=== PATIENT | female | born 1940 | race Caucasian/White ===

== ENCOUNTER 2017-04-03 06:00 | Day surgery (SDC) | payer MEDICARE, BC ==
[~2017-04-03] VITALS: Ht 154.9 cm; Wt 61.2 kg
[~2017-04-03 06:00] MED LIST: AMITIZA8 MCG PO; ASA LO-DOSE81 MG OR; CALCIUM; CENTRUM SILVER PO; CO Q-10200 M1 PO; COZAAR50 MG OR; FOSAMAX70 MG OR; HYDROCHLOROT25 MG OR; LIPITOR20 M1 PO; NAPROSYN500 MG OR; NEURONTIN300 MG PO; NEXIUM 24HR20 MG; PAROXETINE20 MG OR; PAXIL40 MG PO; PRILOSEC20 MG PO; SINGULAIR PO; TRAMADL/APAP PO; TRAZODONE100 MG OR; ZOCOR80 MG OR; [UNRECOGNIZED DRUG - OTHER]
[2017-04-03 07:30] VITALS: BP 132/62
== END 2017-04-03 08:22 | disposition home or self-care (01) ==
LOC: ORM 06:00
PROVIDERS: ATTEND Anesthesiology Pain Medicine
PROC: 3E0T33Z Introduction of Anti-inflammatory into Peripheral Nerves and Plexi, Percutaneous Approach (ICD-10-PCS; principal; 2017-04-03)
PROC: 3E0T3BZ Introduction of Anesthetic Agent into Peripheral Nerves and Plexi, Percutaneous Approach (ICD-10-PCS; 2017-04-03)
DX: M54.5 Low back pain (principal)

== ENCOUNTER 2017-04-24 06:48 | Day surgery (SDC) | payer MEDICARE, BC ==
[~2017-04-24] VITALS: Ht 154.9 cm; Wt 59.9 kg
[2017-04-24 13:32] VITALS: BP 128/59
== END 2017-04-24 09:30 | disposition home or self-care (01) ==
LOC: ORM 06:48
PROVIDERS: ATTEND Anesthesiology Pain Medicine
PROC: 3E0R33Z Introduction of Anti-inflammatory into Spinal Canal, Percutaneous Approach (ICD-10-PCS; principal; 2017-04-24)
DX: M54.16 Radiculopathy, lumbar region (principal); M54.5 Low back pain; M48.07 Spinal stenosis, lumbosacral region

== ENCOUNTER 2017-10-26 14:38 | Emergency (ER) | payer MEDICARE, BC ==
[~2017-10-26] VITALS: Ht 154.9 cm; Wt 60.4 kg
[~2017-10-26 14:38] MED LIST changes: +TRAMADOL HCL50 MG PO
[2017-10-26 15:37] LABS: HEMATOCRIT 41.1 % (37.0-47.0); HEMOGLOBIN 14.1 g/dl (12.0-16.0); IMMATURE GRANULOCYTES 0.2 % (0.0-1.0); MEAN CELL VOLUME 89.3 fL CALC (80.0-100.0); MEAN CORPUSCULAR HGB 30.7 pG CALC (26.0-32.0); MEAN CORPUSCULAR HGB CONC 34.3 g/L CALC (32.0-36.0); NEUT# 5.52 thou/uL (2.00-7.15); RED BLOOD COUNT 4.6 mill/uL (4.20-5.60); RED CELL DISTRI WIDTH 12.7 % (11.5-15.5)
[2017-10-26 15:43] LABS: URINE BILIRUBIN - DIPSTICK NEGATIVE (NEGATIVE); URINE BLOOD DIPSTICK TRACE-INTACT (NEGATIVE); URINE COLOR YELLOW; URINE GLUCOSE - DIPSTICK NEGATIVE (NEGATIVE); URINE KETONE NEGATIVE (NEGATIVE); URINE LEUK ESTERASE NEGATIVE (NEGATIVE); URINE NITRITE - DIPSTICK NEGATIVE (Negative); URINE PROTEIN - DIPSTICK NEGATIVE (NEG-TRACE); URINE SPECIFIC GRAVITY <=1.005; URINE UROBILINOGEN - DIPSTICK 0.2 E.U./dL (0.2)
[2017-10-26 15:46] LABS: URINE CLARITY CLEAR
[2017-10-26 15:54] LABS: INFLUENZA A NONE DETECTED (NONE DETECT); INFLUENZA B NONE DETECTED (NONE DETECT)
[2017-10-26 16:06] LABS: ANION GAP 17 (6-22 (CALC)); BUN 17 mg/dL (8-23); BUN/CREATININE RATIO 18 (12-20 (CALC)); CARBON DIOXIDE 25 mmol/l (22-30); CHLORIDE 104 mmol/l (95-108); CREATININE 0.9 mg/dL (0.5-1.0); GFR > 60 ML/MIN (>=60 (CALC)); GFR FOR AFR.AMER. > 60 ML/MIN (>=60 (CALC)); POTASSIUM 4.6 mmol/l (3.5-5.1); SODIUM 142 mmol/l (137-146)
[2017-10-26] MEDS ORDERED: AMLODIPINE5 MG PO (16:46)
[2017-10-26 16:53] VITALS: BP 187/85
[2017-10-26] MEDS ORDERED: TRAZODONE100 MG PO (16:56)
== END 2017-10-26 17:00 | disposition home or self-care (01) ==
LOC: ED 14:38
PROVIDERS: Family Medicine
DX: I10 Essential (primary) hypertension (principal); R51 Headache; M79.7 Fibromyalgia; E78.00 Pure hypercholesterolemia, unspecified

== ENCOUNTER 2018-10-19 18:35 | Emergency (ER) | payer MEDICARE ==
[~2018-10-19] VITALS: Ht 154.9 cm; Wt 58.6 kg
[~2018-10-19 18:35] MED LIST changes: +AMLODIPINE5 MG PO; +TRAZODONE100 MG PO
[2018-10-19 19:38] LABS: HEMOGLOBIN 12.8 g/dl (12.0-16.0); IMMATURE GRANULOCYTES 0.2 % (0.0-5.0); MEAN CELL VOLUME 90.9 fL CALC (80.0-100.0); MEAN CORPUSCULAR HGB 31.4 pG CALC (26.0-32.0); MEAN CORPUSCULAR HGB CONC 34.6 g/L CALC (32.0-36.0); RED BLOOD COUNT 4.07 mill/uL (4.20-5.60); RED CELL DISTRI WIDTH 12.5 % (11.5-15.5)
[2018-10-19 19:55] LABS: ALBUMIN 4.3 g/dL (3.2-5.0); ALKALINE PHOSPHATASE 72 u/l (38-126); AMYLASE 52 u/l (30-110); ANION GAP 14 (6-22 (CALC)); BILIRUBIN, TOTAL 0.3 mg/dL (0.0-1.4); BUN 18 mg/dL (8-23); BUN/CREATININE RATIO 20 (12-20 (CALC)); CARBON DIOXIDE 28 mmol/l (22-30); CHLORIDE 100 mmol/l (95-108); CREATININE 0.9 mg/dL (0.5-1.0); GFR > 60 ML/MIN (>=60 (CALC)); GFR FOR AFR.AMER. > 60 ML/MIN (>=60 (CALC)); LIPASE 156 u/l (23-300); POTASSIUM 4.1 mmol/l (3.5-5.1); SGOT/AST 28 u/l (9-36); SODIUM 137 mmol/l (137-146); TOTAL PROTEIN 6.5 g/dL (6.3-8.2)
[2018-10-19 20:06] LABS: MYOGLOBIN 36 ng/mL (0 - 62)
[2018-10-19 21:14] LABS: URINE BILIRUBIN - DIPSTICK NEGATIVE (NEGATIVE); URINE BLOOD DIPSTICK NEGATIVE (NEGATIVE); URINE COLOR YELLOW; URINE GLUCOSE - DIPSTICK NEGATIVE (NEGATIVE); URINE KETONE NEGATIVE (NEGATIVE); URINE LEUK ESTERASE NEGATIVE (NEGATIVE); URINE NITRITE - DIPSTICK NEGATIVE (Negative); URINE PH 5.5 (4.5-8.0); URINE PROTEIN - DIPSTICK NEGATIVE (NEG-TRACE); URINE SPECIFIC GRAVITY <=1.005; URINE UROBILINOGEN - DIPSTICK 0.2 E.U./dL (0.2)
[2018-10-19] MEDS ORDERED: ZESTRIL10 M1 PO (21:23)
[2018-10-19] MEDS ORDERED: PEPCID40 MG PO (21:23)
[2018-10-19 21:48] VITALS: BP 160/72
== END 2018-10-19 21:48 | disposition home or self-care (01) ==
LOC: ED 18:35
PROVIDERS: Family Medicine
DX: K29.70 Gastritis, unspecified, without bleeding (principal); K59.00 Constipation, unspecified; I10 Essential (primary) hypertension; R11.0 Nausea; R14.2 Eructation; R10.13 Epigastric pain; M79.7 Fibromyalgia; R13.10 Dysphagia, unspecified

== ENCOUNTER 2019-04-01 06:52 | Day surgery (SDC) | payer MEDICARE ==
[~2019-04-01] VITALS: Ht 154.9 cm; Wt 59.0 kg
[~2019-04-01 06:52] MED LIST changes: +OMEPRAZOLE10 MG PO; +PEPCID40 MG PO; +TRAZODONE50 MG PO; +ZESTRIL10 M1 PO
[2019-04-01 08:57] VITALS: BP 113/59
== END 2019-04-01 09:10 | disposition home or self-care (01) ==
LOC: ENDO 06:52 → ORM 08:30 → ENDO 09:10
PROVIDERS: ATTEND Surgery
PROC: 0DJD8ZZ Inspection of Lower Intestinal Tract, Via Natural or Artificial Opening Endoscopic (ICD-10-PCS; principal; 2019-04-01)
DX: K57.30 Diverticulosis of large intestine without perforation or abscess without bleeding (principal); Q43.8 Other specified congenital malformations of intestine; K56.609 Unspecified intestinal obstruction, unspecified as to partial versus complete obstruction

== ENCOUNTER 2022-04-17 12:18 | Observation (INO) | payer MEDICARE ==
[~2022-04-17] VITALS: Ht 154.9 cm; Wt 54.0 kg
[2022-04-17] VITALS (14 sets, daily range): BP systolic 122–166; BP diastolic 59–93
[~2022-04-17 12:18] MED LIST changes: +OMEPRAZOLE DR40 MG PO; -OMEPRAZOLE10 MG PO
[2022-04-17] MEDS ORDERED: ZPAK PO (12:29)
[2022-04-17] MEDS ORDERED: MEDDOSEPAK PO (12:29)
[2022-04-17 12:56] LABS: HEMATOCRIT 42.5 % (37.0-47.0); HEMOGLOBIN 14.4 g/dl (12.0-16.0); IMMATURE GRANULOCYTES 0.3 % (0.0-5.0); MEAN CELL VOLUME 90.6 fL CALC (80.0-100.0); MEAN CORPUSCULAR HGB 30.7 pG CALC (26.0-32.0); MEAN CORPUSCULAR HGB CONC 33.9 g/dL CAL (32.0-36.0); NEUT# 6.45 thou/uL (2.00-7.15); RED BLOOD COUNT 4.69 mill/uL (4.20-5.60); RED CELL DISTRI WIDTH 12.3 % (11.5-15.5)
[2022-04-17 12:57] LABS: URINE BLOOD DIPSTICK TRACE-INTACT (NEGATIVE); URINE COLOR YELLOW; URINE GLUCOSE - DIPSTICK NEGATIVE (NEGATIVE); URINE KETONE TRACE mg/dL (NEGATIVE); URINE LEUK ESTERASE NEGATIVE (NEGATIVE); URINE PROTEIN - DIPSTICK 100 mg/dL (NEG-TRACE); URINE UROBILINOGEN - DIPSTICK 0.2 E.U./dL (0.2)
[2022-04-17 13:00] LABS: URINE BILIRUBIN - DIPSTICK NEGATIVE (NEGATIVE); URINE NITRITE - DIPSTICK NEGATIVE (Negative)
[2022-04-17 13:02] LABS: URINE WBC 0-2 WBC/hpf (0-5)
[2022-04-17 13:03] LABS: URINE CALCIUM OXALATE CRYSTALS FEW lpf; URINE SQUAMOUS EPITHELIAL CELL FEW EPI/hpf (0-FEW)
[2022-04-17 13:12] LABS: INTERNATIONAL NORMALIZED RATIO 0.9 RATIO (0.7-1.3); PROTHROMBIN TIME 9.6 SECONDS (9.0-12.5)
[2022-04-17 13:17] LABS: ALBUMIN 4.2 g/dL (3.2-5.0); ALKALINE PHOSPHATASE 72 u/l (38-126); ANION GAP 10 (6-22 (CALC)); BILIRUBIN, TOTAL 0.5 mg/dL (0.0-1.4); BUN 21 mg/dL (8-23); BUN/CREATININE RATIO 18 (12-20 (CALC)); CARBON DIOXIDE 29 mmol/l (22-30); CHLORIDE 102 mmol/l (95-108); CREATININE 1.2 mg/dL (0.5-1.0); GFR FOR AFR.AMER. 52 ML/MIN (>=60 (CALC)); GFR OTHER RACES 43 ML/MIN (>=60 (CALC)); POTASSIUM 3.7 mmol/l (3.5-5.1); SGOT/AST 29 u/l (9-36); SODIUM 136 mmol/l (137-146); TOTAL PROTEIN 7.2 g/dL (6.3-8.2)
[2022-04-17 13:27] LABS: MYOGLOBIN 55 ng/mL (0 - 62)
[2022-04-18 00:07] VITALS: BP 132/56
[2022-04-18 02:07] LABS: HEMATOCRIT 36.6 % (37.0-47.0); IMMATURE GRANULOCYTES 0.2 % (0.0-5.0); MEAN CORPUSCULAR HGB 31.2 pG CALC (26.0-32.0); MEAN CORPUSCULAR HGB CONC 33.9 g/dL CAL (32.0-36.0); NEUT# 4.59 thou/uL (2.00-7.15); RED BLOOD COUNT 3.98 mill/uL (4.20-5.60); RED CELL DISTRI WIDTH 12.4 % (11.5-15.5)
[2022-04-18 02:15] LABS: HEMOGLOBIN 12.4 g/dl (12.0-16.0)
[2022-04-18 02:18] LABS: ALKALINE PHOSPHATASE 65 u/l (38-126); ANION GAP 7 (6-22 (CALC)); BILIRUBIN, TOTAL 0.3 mg/dL (0.0-1.4); BUN 22 mg/dL (8-23); BUN/CREATININE RATIO 26 (12-20 (CALC)); C-REACTIVE PROTEIN < 0.5 mg/dL (0-0.9); CALCULATED LDLCHOLESTEROL 97 mg/dL (62-129 (CALC)); CARBON DIOXIDE 26 mmol/l (22-30); CHLORIDE 108 mmol/l (95-108); CHOLESTEROL HDL RATIO 2.8 (<4.4 (CALC)); CREATININE 0.8 mg/dL (0.5-1.0); GFR FOR AFR.AMER. > 60 ML/MIN (>=60 (CALC)); GFR OTHER RACES > 60 ML/MIN (>=60 (CALC)); HDL CHOLESTEROL 66 mg/dL (>=40); POTASSIUM 4.2 mmol/l (3.5-5.1); SGOT/AST 23 u/l (9-36); SODIUM 137 mmol/l (137-146); TOTAL CHOLESTEROL 186 mg/dl (0-199); TOTAL TRIGLYCERIDES 114 mg/dl (30-149); VLDL CHOLESTROL 23 mg/dl (0-48 (CALC))
[2022-04-18 02:19] LABS: ALBUMIN 3.2 g/dL (3.2-5.0); TOTAL PROTEIN 5.5 g/dL (6.3-8.2)
[2022-04-18 04:10] VITALS: BP 132/56
[2022-04-18 06:38] VITALS: BP 157/59
[2022-04-18] MEDS ORDERED: SINGULAIR10 MG PO (11:51)
[2022-04-18] MEDS ORDERED: COZAAR50 MG PO (11:51)
[2022-04-18] MEDS ORDERED: DODEX1000 MCG IM (11:56)
[2022-04-18] MEDS ORDERED: ELAVIL25 M1 PO (11:57)
[2022-04-18] MEDS ORDERED: ULTRAM50 MG PO (12:00)
[2022-04-18] MEDS ORDERED: PROAIR HFA108 MCG/AC IN (12:03)
[2022-04-18] MEDS ORDERED: EQL FLUTIC50 MCG/ACT (12:09)
== END 2022-04-18 14:17 | disposition home or self-care (01) ==
LOC: ED 12:18 → ED-I 13:22 → ED 13:22 → ED-I 13:40 → ED 14:06 → MS2 14:07
PROVIDERS: Nurse Practitioner; ADMIT Internal Medicine; ATTEND Internal Medicine
DX: U07.1 COVID-19 (principal); R07.89 Other chest pain; R50.9 Fever, unspecified; R06.02 Shortness of breath; R05.9 Cough, unspecified; R09.81 Nasal congestion; M79.7 Fibromyalgia; F32.A Depression, unspecified; E78.00 Pure hypercholesterolemia, unspecified; G47.00 Insomnia, unspecified
CPT/HCPCS: J1650